=== PATIENT | female | born 1970 | race Caucasian/White ===

== ENCOUNTER → 2018-03-19 | Outpatient (CLI) | payer BC ==
[2018-03-19 12:05] LABS: Basophils % (A) 0 %; Eosinophils # (A) 0.1 k/uL (0-0.7); Eosinophils % (A) 2 %; HCT 38.4 % (34.0-46.0); HGB 12.9 gm/dL (11.4-16.0); Lymphocytes # (A) 2.1 k/uL (1.0-4.8); Lymphocytes % (A) 24 %; MCHC 33.7 g/dL (31.0-37.0); MCV 83.3 fL (80.0-100.0); Mean Platelet Volume 7.5; Monocytes # (A) 0.4 k/uL (0-1.0); Monocytes % (A) 5 %; Neutrophils % (A) 68 %; Platelet Count 266 k/uL (150-450); RBC 4.61 m/uL (3.80-5.40); RDW 13.2 % (11.5-15.5); WBC 8.9 k/uL (3.8-10.6)
[2018-03-19 12:19] LABS: Potassium 3.8 mmol/L (3.5-5.1)
== END ==
LOC: LABWHC1 10:02
PROVIDERS: ATTEND Orthopaedic Surgery
DX: Z01.812 Encounter for preprocedural laboratory examination (principal); G56.01 Carpal tunnel syndrome, right upper limb
CPT/HCPCS: 36415; 80051; 85025

== ENCOUNTER 2018-03-23 10:01 | Day surgery (SDC) | payer BC ==
[2018-03-16 12:20] VITALS: BMI 33.5
--- NOTE | 2018-03-22 13:06 | HP ---
HISTORY AND PHYSICAL CHIEF COMPLAINT: Right hand pain and numbness. 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 She notes weakness, numbness, and pain. She is having night symptoms. She has tried bracing and anti- inflammatories with only partial relief. PAST MEDICAL HISTORY: Negative. PAST SURGICAL HISTORY: Significant for tubal ligation and tonsillectomy. CURRENT MEDICATIONS: None. She has allergies to PENICILLIN, CODEINE, and SULFA. FAMILY HISTORY: Significant for stroke. SOCIAL HISTORY: Significant for social alcohol use, in addition to previous tobacco use. REVIEW OF SYSTEMS: A sixteen point review of systems otherwise reviewed and is noncontributory. PHYSICAL EXAMINATION: On examination, the patient is approximately 5 foot 4, 195 pounds of endomorphic habitus. HEENT exam is nonfocal. Neck is supple. She is nontender about the right shoulder and elbow. On examination of the right wrist, she has a positive Tinel's over the carpal canal. Adductor pollicis brevis strength is 5-/5. She has mild thenar wasting. Her light touch is diminished in the thumb and index finger. IMPRESSION: Symptomatic right carpal tunnel syndrome. RECOMMENDATION: I talked to the patient at length regarding her condition and treatment options. At this point, she is quite symptomatic, despite conservative measures. After thorough discussion, she opts to proceed with surgery. We will plan to proceed with right carpal tunnel release. We will likely perform that utilizing local anesthetic and IV sedation. MMODL / IJN: [id number] /
[~2018-03-23 10:01] MED LIST: DEXAMETHASONE SOD PHOSPHATE 10 MG/ML 1 ML VIAL IV ONE; LACTATED RINGERS 1,000 ML IV SCH; LIDOCAINE 1% 20 ML VIAL (10MG/ML) FOR IV START INTRADERMA PRN; SCOPOLAMINE 1.5MG/72HR PATCH TRANSDERM ONE; ceFAZolin IN SWFI 2 GM/20 ML SYRINGE IVP ONE
[2018-03-23 10:58] VITALS: RESP 16; TEMP 98.3
[2018-03-23] MEDS ORDERED: MIDAZOLAM 2 MG/2 ML VIAL ONE (12:24)
[2018-03-23] MEDS ORDERED: LIDOCAINE 1% INJ 10MG/ML (20 ML MDV) ONE (12:24)
[2018-03-23] MEDS ORDERED: KETAMINE 10 MG/ML 20 ML VIAL ONE (12:24)
[2018-03-23] MEDS ORDERED: fentaNYL (PF) 50 MCG/ML 2 ML AMP ONE (12:24)
[2018-03-23] MEDS ORDERED: PROPOFOL 10 MG/ML 20 ML VIAL IV ONE (12:24)
[2018-03-23] MEDS ORDERED: LIDOCAINE 2% (PF) 20 MG/ML 10 ML AMP SQ ONE (12:30)
--- NOTE | 2018-03-23 12:55 | P.OP ---
Date of Procedure: 03/23/18 Preoperative Diagnosis: Symptomatic right carpal tunnel syndrome Postoperative Diagnosis: Same Procedure(s) Performed: Right carpal tunnel release Anesthesia: MAC, local Surgeon: Tae Garsia Estimated Blood Loss (ml): 2 Pathology: none sent Condition: stable Disposition: PACU Indications for Procedure: The patient's a 47-year-old female who presents with progressive right hand pain and numbness despite conservative measures. A discussion of the risks and benefits of operative intervention versus continued conservative measures was made with patient. She opted to proceed with surgery. Operative risks to include infection, neurovascular injury, development of blood clots, possible incomplete resolution of symptoms, possible recurrence of symptoms and need for subsequent procedures was discussed. Informed consent was obtained. Operative Findings: As below Description of Procedure: The patient was brought to the operating room, and after induction of IV sedation the right upper extremity was prepped and draped in normal fashion. The proposed skin incision was injected with 8 mL of 2% plain lidocaine. The tourniquet was inflated to 250 mmHg. A longitudinal incision extending to have a centimeters was then made in line with the radial aspect of the fourth ray extending from the volar wrist crease distally. The skin and subcutaneous tissues were divided sharply. Electrocautery was used for hemostasis. The superficial palmar fascia was identified and split in line with the skin incision. The transverse carpal ligament was identified and transected under direct visualization distally to level the palmar fat pad. I felt this was adequate distal release. Proximally it was taken level the volar wrist crease. A plane above and below was then bluntly developed with tenotomies. The confluence of the distal forearm fascia and the transverse carpal ligament was then transected under direct visualization with the tines pointed in the ulnar direction. I felt this was adequate proximal release. Neural lysis was not performed. The wound was irrigated with normal saline. The skin was reapproximated with simple 3-0 nylon suture. A sterile dressing was applied. The tourniquet was deflated less than 15 minutes total tourniquet time. The patient was awoken from sedation and transferred to the recovery room in good condition. Blood loss was estimated at 2 mL. No complications were incurred. Sponge and needle counts were correct at the end of the case.
[2018-03-23 13:06] VITALS: PULSE 84
[2018-03-23 13:30] VITALS: BP 114/65
== END 2018-03-23 13:59 | disposition home or self-care (01) ==
LOC: OR 10:01
PROVIDERS: ATTEND Orthopaedic Surgery
DX: G56.01 Carpal tunnel syndrome, right upper limb (principal); I10 Essential (primary) hypertension; F32.9 Major depressive disorder, single episode, unspecified; Z88.5 Allergy status to narcotic agent; Z88.0 Allergy status to penicillin; Z88.2 Allergy status to sulfonamides; Z87.891 Personal history of nicotine dependence; Z79.899 Other long term (current) drug therapy
CPT/HCPCS: 81025; 64721; J2250; J1100; J2001 ×2; J3010; J2704; J0690

== ENCOUNTER → 2020-09-29 | Outpatient (CLI) | payer BC, MEDICAID ==
--- NOTE | 2020-09-30 10:31 | MM ---
Reason for exam: screening (asymptomatic). Last mammogram was performed 2 years and 9 months ago. Physical Findings: A clinical breast exam by your physician is recommended on an annual basis and results should be correlated with mammographic findings. MG Screening Mammo w CAD Bilateral CC and MLO view(s) were taken. Prior study comparison: January 03, 2018, mammogram, performed at [facility]. November 08, 2016, mammogram, performed at [facility]. The breast tissue is heterogeneously dense. This may lower the sensitivity of mammography. There is no discrete abnormality. No significant changes when compared with prior studies. ASSESSMENT: Negative, BI-RAD 1 RECOMMENDATION: Routine screening mammogram of both breasts in 1 year.
== END | disposition home or self-care (01) ==
LOC: RADMAMWWP 08:46
PROVIDERS: ATTEND Family Medicine
DX: Z12.31 Encounter for screening mammogram for malignant neoplasm of breast (principal)
CPT/HCPCS: 77067

== ENCOUNTER → 2022-01-25 | Outpatient (CLI) | payer MEDICAID ==
--- NOTE | 2022-01-26 07:52 | MM ---
Reason for Exam: Screening (asymptomatic). Last mammogram was performed 1 year(s) and 3 month(s) ago. Patient History: Menarche at age 17. First Full-Term at age 24. Patient has history of breast feeding. Last menstrual period: 01/18/2022 Risk Values: Blank 5 year model risk: 0.8%. NCI Lifetime model risk: 7.5%. Prior Study Comparison: 11/08/2016 Screening Mammogram, [facility]. 01/03/2018 Screening Mammogram, [facility]. 09/29/2020 Bilateral Screening Mammogram, [facility]. Tissue Density: The breast tissue is heterogeneously dense. This may lower the sensitivity of mammography. Findings: Analyzed By CAD. There is no suspicious group of microcalcifications or new suspicious mass in either breast. Overall Assessment: Negative, BI-RAD 1 Management: Screening Mammogram of both breasts in 1 year. A clinical breast exam by your physician is recommended on an annual basis and results should be correlated with mammographic findings. Electronically signed and approved by: Jasiel Cm M.D. Radiologis
== END | disposition home or self-care (01) ==
LOC: RADMAMWWP 10:44
PROVIDERS: ATTEND Family Medicine
DX: Z12.31 Encounter for screening mammogram for malignant neoplasm of breast (principal)
CPT/HCPCS: 77063; 77067

== ENCOUNTER → 2023-05-09 | Outpatient (CLI) | payer BC ==
--- NOTE | 2023-05-10 15:48 | MM ---
Reason for Exam: Screening (asymptomatic). Last mammogram was performed 1 year(s) and 4 month(s) ago. Patient History: Menarche at age 17. First Full-Term at age 24. Perimenopausal. Patient has history of breast feeding. Last menstrual period: 04/24/2023 Risk Values: Blank 5 year model risk: 0.8%. NCI Lifetime model risk: 7.4%. Prior Study Comparison: 01/03/2018 Screening Mammogram, [facility]. 09/29/2020 Bilateral Screening Mammogram, [facility]. 01/25/2022 Bilateral MG 3D screening mammo w/cad, [facility]. Tissue Density: There are scattered fibroglandular densities. Findings: Analyzed By CAD. Pattern appears symmetrical. There is a focal asymmetry within the upper outer left breast. This may be change from prior study. Additional workup with compression views is recommended. No suspicious groups of microcalcifications, spiculated or lobular masses, architectural distortion or other secondary signs of malignancy are mammographically apparent. Overall Assessment: Incomplete: need additional imaging evaluation, BI-RAD 0 Management: Diagnostic Mammogram of the left breast. A negative mammogram report should not preclude additional follow up of suspicious palpable abnormalities. Patient should continue monthly self breast exam. A clinical breast exam by your physician is recommended on an annual basis and results should be correlated with mammographic findings. Electronically signed and approved by: Ricki Gomez D.O. Radiologis
== END | disposition home or self-care (01) ==
LOC: RADMAMWWP 13:46
PROVIDERS: ATTEND Family Medicine
DX: Z12.31 Encounter for screening mammogram for malignant neoplasm of breast (principal)
CPT/HCPCS: 77063; 77067

== ENCOUNTER → 2023-05-19 | Outpatient (CLI) | payer BC ==
--- NOTE | 2023-05-19 10:12 | MM ---
Reason for Exam: Additional evaluation requested from abnormal screening. Last screening mammogram was performed less than 1 month ago. Patient History: Menarche at age 17. First Full-Term at age 24. Perimenopausal. Patient has history of breast feeding. Risk Values: Blank 5 year model risk: 0.8%. NCI Lifetime model risk: 7.4%. Prior Study Comparison: 09/29/2020 Bilateral Screening Mammogram, [facility]. 01/25/2022 Bilateral MG 3D screening mammo w/cad, [facility]. 05/09/2023 Bilateral MG 3D screening mammo w/cad, [facility]. Tissue Density: Left: There are scattered fibroglandular densities. Findings: Analyzed By CAD. Lateral asymmetric density on the CC view becomes less defined on 3-D suggesting superimposition shadow. Given the appearance on the screening exam, progression or six-month follow-up is recommended. Overall Assessment: Probably benign, BI-RAD 3 Management: Diagnostic Mammogram of the left breast in 6 months. . Results were given to the patient verbally at the time of exam. Patient should continue monthly self-breast exams. A clinical breast exam by your physician is recommended on an annual basis. This exam should not preclude additional follow-up of suspicious palpable abnormalities. Note on Lbank scores and lifetime risk: 1. A Blank score greater than 3% is considered moderate risk. If this is the case, consider specialist referral to assess eligibility for a risk reducing agent. 2. If overall lifetime risk for the development of breast cancer is 20% or higher, the patient may qualify for future screening with alternating mammogram and breast MRI. Electronically signed and approved by: Melissa Maldonado M.D. Radiologist
== END | disposition home or self-care (01) ==
LOC: RADMAMWWP 08:52
PROVIDERS: ATTEND Family Medicine
DX: R92.322 Mammographic fibroglandular density, left breast (principal)
CPT/HCPCS: 77061; 77065

== ENCOUNTER → 2024-06-13 | Outpatient (CLI) | payer OTHER ==
--- NOTE | 2024-06-13 09:34 | MM ---
Reason for Exam: Screening (asymptomatic). Last mammogram was performed 1 year(s) and 1 month(s) ago. Patient History: Menarche at age 17. First Full-Term at age 24. Perimenopausal. Patient has history of breast feeding. Risk Values: Blank 5 year model risk: 0.9%. NCI Lifetime model risk: 7.1%. Prior Study Comparison: 01/25/2022 Bilateral MG 3D screening mammo w/cad, [facility]. 05/09/2023 Bilateral MG 3D screening mammo w/cad, [facility]. 05/19/2023 Left MG 3D work up w/cad , [facility]. Tissue Density: There are scattered areas of fibroglandular density. Findings: Analyzed By CAD. There is no suspicious group of microcalcifications or new suspicious mass in either breast. Overall Assessment: Negative, BI-RAD 1 Management: Screening Mammogram of both breasts in 1 year. . Patient should continue monthly self-breast exams. A clinical breast exam by your physician is recommended on an annual basis. This exam should not preclude additional follow-up of suspicious palpable abnormalities. Note on Blank scores and lifetime risk: 1. A Blank score greater than 3% is considered moderate risk. If this is the case, consider specialist referral to assess eligibility for a risk reducing agent. 2. If overall lifetime risk for the development of breast cancer is 20% or higher, the patient may qualify for future screening with alternating mammogram and breast MRI. [facility], , 06/13/2024 9:31 AM. Electronically signed and approved by: Daquan Olea M.D.
== END | disposition home or self-care (01) ==
LOC: RADMAMWWP 07:59
PROVIDERS: ATTEND Family Medicine
DX: Z12.31 Encounter for screening mammogram for malignant neoplasm of breast (principal); R92.323 Mammographic fibroglandular density, bilateral breasts
CPT/HCPCS: 77063; 77067